=== PATIENT | male | born 1940 | race Caucasian/White ===

== ENCOUNTER 2019-12-04 10:48 | Emergency (ER) | payer MEDICARE, SELFPAY ==
--- NOTE | ~2019-12-04 | CT_ITS ---
EXAMINATION: CT thoracic lumbar w con DATE: 12/04/2019 12:21 INDICATION: Severe back pain. No feeling in the legs. TECHNIQUE: Computed tomography (CT) of the thoracic and lumbar spine was performed with 100 mL Omnipa que 350 intravenous contrast. Automated exposure control and iterative reconstruction technique were employed. The dose-length product was 2248.92 mGy-cm. COMPARISON: CT abdomen and pelvis 05/22/2018, chest 2 views 01/08/2019 FINDINGS: THORACIC SPINE CT: There is mild emphysema. There is mild atelectasis bilaterally. There is a 14 mm n odule in right lung upper lobe. There is a 5 mm nodule in right lung upper lobe. No pleural effusion. Cardiomegaly is noted. There are coronary artery calcifications. No pericardial effusion. There are calcifications of the aortic valve. There is 5 degrees dextrocurvature of thoracic spine. There is an acute versus subacute burst fracture of T5 with 3/5 loss of height and retropulsion of bone 3 mm int o central spinal canal. There is hyperdense soft tissue around T5 vertebral body with severe stenosis of the neural foramina and severe central canal stenosis with cord compression. There is a chronic c ompression fracture of T6 with 1/5 loss of height. There is moderately decreased disc height at T5-T6 and mildly decreased disc height at multiple other levels. There is multilevel mild facet joint oste oarthritis. There is severe facet joint osteoarthritis on the right at T5-T6. There is mild right elroy ral foraminal stenosis at T6-T7 and mild left neural foraminal stenosis at T6-T7 and T7-T8. There is moderate left neural foraminal stenosis at T10-T11 and T11-T12. LUMBAR SPINE CT: There are changes of right nephrectomy. There is 4 mm retrolisthesis of L2 on L3 and L3 on L4. There is a chronic compression fracture of L1 with 2/5 loss of height centrally. There is mildly decreased disc height at L2-L3. The disc heights are normal. The following disc levels are sp ecifically discussed: L1-L2: The disc is bulging. There is severe right and mild left facet joint osteoarthritis. There is no neural foraminal stenosis. There is no central canal stenosis. L2-L3: The disc is bulging. There is moderate right and mild left facet joint osteoarthritis. There i s moderate bilateral neural foraminal stenosis. There is moderate to severe central canal stenosis. L3-L4: The disc is bulging. There is severe right and moderate left facet joint osteoarthritis. There is moderate bilateral neural foraminal stenosis. There is moderate to severe central canal stenosis. L4-L5: The disc is bulging. There is severe bilateral facet joint osteoarthritis. There is moderate b ilateral neural foraminal stenosis. There is moderate to severe central canal stenosis. L5-S1: The disc is bulging. There is severe bilateral facet joint osteoarthritis. There is mild bilat eral neural foraminal stenosis. There is mild central canal stenosis. IMPRESSION: 1. Pathologic acute versus subacute T5 burst fracture with severe central canal stenosis and cord com pression. 2. Right lung nodules, consistent with metastatic disease. 3. Severe lumbar spondylosis. Reviewed, dictated and finalized at location A. [facility] IMPRESSION: 1. Pathologic acute versus subacute T5 burst fracture with severe central canal stenosis and cord compression. 2. Right lung nodules, consistent with metastatic disease. 3. Severe lumbar spondylosis.
--- NOTE | 2019-12-04 10:54 | ED.GENADULT ---
HPI - General Adult General Chief complaint: Weakness Stated complaint: MULTIPLE C/O Time Seen by Provider: 12/04/19 10:54 Source: patient and EMS Mode of arrival: EMS Limitations: no limitations History of Present Illness HPI narrative: Pt is a 79 y/o male who presents to the ED, via EMS, from OR, with c/o numbness from his waste down that started 4 days ago. Pt has a H/o kidney CA that metastasized to his bones. Pt is supposed to have a liver Bx for possible metastasis to his liver as well. Pt had a nephrectomy, but he has not undergone chemotherapy or radiation. Pt has not been able to urinate on his own for 4 days. He notes that he was catheterized a couple of days ago. His last BM was 2 days ago. Per EMS, pt has some rib Fx's after he sneezed. Per OR records, pt is a full code. Pt notes that he normally walks with a walker but he has not been able to for the last 4 days. MD complaint: Numbness Onset (ago): day(s) (4) Location: lower extremity (from waste down) Relieving factors: none Exacerbating factors: none Associated symptoms: other (inability to urinate) Related Data Home Medications Medication Instructions Recorded Confirmed albuterol sulfate [Ventolin HFA] 1 inh INHALATION QID 11/29/19 11/29/19 apixaban [Eliquis] 5 mg PO BID 11/29/19 11/29/19 carbidopa-levodopa 2 tablet PO TID 11/29/19 11/29/19 diltiazem HCl [Cartia XT] 180 mg PO DAILY 11/29/19 11/29/19 famotidine 20 mg PO 11/29/19 11/29/19 finasteride 5 mg PO DAILY 11/29/19 11/29/19 fluticasone furoate 1 mcg INHALATION 11/29/19 hydroxyzine HCl 10 mg 11/29/19 levothyroxine 100 mcg PO DAILY 11/29/19 11/29/19 metoprolol succinate 25 mg PO DAILY 11/29/19 11/29/19 montelukast 10 mg PO HS 11/29/19 11/29/19 simvastatin 10 mg PO HS 11/29/19 11/29/19 sulfasalazine 1 g PO TID 11/29/19 11/29/19 tamsulosin 0.8 mg PO HS 11/29/19 11/29/19 Allergies Allergy/AdvReac Type Severity Reaction Status Date / Time bacitracin Allergy Severe RASH Verified 01/08/19 13:22 benzethonium chloride Allergy Severe RASH Verified 01/08/19 13:22 benzocaine Allergy Severe RASH Verified 01/08/19 13:22 ceftriaxone Allergy Severe RASH Verified 01/08/19 13:22 neomycin Allergy Severe RASH Verified 01/08/19 13:22 polymyxin B Allergy Severe RASH Verified 01/08/19 13:22 sulfamethoxazole Allergy Severe RASH Verified 01/08/19 13:22 trimethoprim Allergy Severe RASH Verified 01/08/19 13:22 Review of Systems Review of Systems: All systems reviewed & are unremarkable except as noted in HPI and below Genitourinary: Genitourinary: Reports urinary incontinence Neurologic: Reports numbness (from waste down) [facility] Past Medical History Medical History (Updated 12/04/19 @ 17:36 by Korey Galvez MD) Anemia BPH (benign prostatic hyperplasia) COPD (chronic obstructive pulmonary disease) History of kidney cancer HTN (hypertension) Hypothyroidism MDS (myelodysplastic syndrome) Metastasis to bone Parkinson disease Spinal stenosis at L4-L5 level Thrombocytopenia Ulcerative colitis Surgical History Surgical History (Updated 12/04/19 @ 12:07 by Dee Wesley) H/O cataract removal with insertion of prosthetic lens H/O hemorrhoidectomy H/O knee surgery History of nephrectomy Family History Family History (Updated 11/29/19 @ 11:18 by Natalya Bob MD) Father Lung cancer Mother Breast cancer Sibling Breast cancer Social History Social History Smoking packs per day: 2 Smoking cigarettes per day: 40.0 Years smoked: 30 Smoking pack-years: 60.00 Smoking status: Former smoker Tobacco type: cigarettes Alcohol intake: never Substance use: never Gender identity (if verbalized by the patient): Male Spiritual care concerns: No Exam Narrative: Exam Narrative: General appearance: Well-developed, well-nourished, morbidly obese Skin: Normal color Head: Normocephalic, nontraumatic Eyes: Clear conjunctiva ENT: Orophary
--- NOTE | 2019-12-04 10:55 | ECG_ITS ---
Measurements Intervals [place] Rate: 88 P: MT: 0 QRS: 22 QRSD: 97 T: 11 QT: 355 QTc: 431 Interpretive Statements ATRIAL FLUTTER/TACHYCARDIA INCOMPLETE RIGHT BUNDLE BRANCH BLOCK BASELINE ARTIFACT- I, II, III, AVR, AVL, AVF, V1-V6 ABNORMAL ECG Electronically Signed On 12-04-2019 11:37:27 [employer] by Shane Alvarez D.O.
[2019-12-04 11:15] VITALS: BP 143/85; PULSE 99; RESP 21
[2019-12-04 11:16] VITALS: BP 145/85; PULSE 88; RESP 18; TEMP 36.8; O2SAT 91
[2019-12-04 11:22] VITALS: PULSE 88
--- NOTE | 2019-12-04 11:24 | PC.NURSE ---
PT REPORT GIVEN BEDSIDE TO GORDON PRADO WHO HAS ASSUMED PT CARE. PT PLACED ON AIRMATTRESS AND TAKEN TO CT AT THIS TIME.
--- NOTE | 2019-12-04 11:31 | PC.NURSE ---
Family client experience consultant light asking for pain medication for pt after being rolled and placed on air mattress. Spoke with UMESH Galvez who gave a verbal order for 4mg Morhpine and 4mg Zofran.
[2019-12-04] MEDS: ONDANSETRON INJ 4 MG/2 ML VIAL IV PUSH (11:37)
[2019-12-04] MEDS: MORPHINE SULFATE 4 MG/ML INJ IV PUSH (11:37)
[2019-12-04 11:43] LABS: Basophils Percent Auto 0.2 % (0.2-1.2); Eosinophils Percent Auto 0.2 % (0-4.4); Hematocrit 27.9 % (42.0-52.0); Hemoglobin 8.6 g/dL (14.0-18.0); Immature Granulocyte Absolute 0.11 K/mm3 (0.00-0.031); Immature Granulocyte Percent A 0.8 % (0-0.5); Lymphocytes Absolute Auto 0.52 K/mm3 (0.9-3.2); Lymphocytes Percent Auto 3.9 % (18.3-44.2); Mean Corpuscular HGB Conc 30.8 g/dl (32-36); Mean Corpuscular Hemoglobin 31.6 pg (26-34); Mean Corpuscular Volume 102.6 fl (80-100); Mean Platelet Volume 10.5 fl (7.4-10.4); Monocytes Absolute Auto 0.8 K/mm3 (0.1-0.6); Monocytes Percent Auto 6.4 % (2.6-8.5); Neutrophils Absolute Auto 11.7 K/mm3 (1.3-6.7); Neutrophils Percent Auto 88.5 % (45.5-73.1); Platelet Count Result 120 k/mm3 (150-375); Red Blood Count 2.72 M/mm3 (4.6-6.20); Red Cell Distribution Width 15.4 % (11.5-14.5); White Blood Count 13.2 K/mm3 (4.5-10.0)
[2019-12-04 12:00] LABS: Alanine Aminotransferase 10 U/L (4-50); Albumin Level 3.3 g/dL (3.5-5.1); Alkaline Phosphatase 153 U/L (38-126); Aspartate Amino Transferase 25 U/L (17-59); Bilirubin,Total 0.5 mg/dL (0.2-1.3); Blood Urea Nitrogen 37 mg/dL (9-20); Calcium 8.9 mg/dL (8.4-10.2); Carbon Dioxide 22 mmol/L (22-30); Chloride 100 mmol/L (98-107); Estimated CRCL calculation 67 ml/min; Estimated Glomerular Filt Rate 58; Glucose 114 mg/dL (75-110); Potassium 4.3 mmol/L (3.4-5.0); Sodium 132 mmol/L (137-145)
[2019-12-04 13:28] VITALS: BP 101/58; PULSE 81; RESP 9; O2SAT 99
[2019-12-04 15:18] LABS: Add Urine Microscopic? YES; Appearance Urine Clear (Clear); Bacteria Urine Trace /hpf; Bilirubin Urine Negative (Negative); Blood Urine 2+ (Negative); Color Urine Yellow (Yellow); Glucose Urine UA Negative (Negative); Ketones Urine Negative (Negative); Leukocyte Esterase Ur Negative LEU/UL (Negative); Mucus Urine Rare /lpf; Nitrate Urine Negative (Negative); Protein Urine Negative (Negative); RBC Urine 21-50 /hpf (0-2); Specific Grav Ur 1.016 (1.001-1.035); Urobilinogen Urine Negative mg/dL (<2.0); WBC Urine 0-3 /hpf
[2019-12-04] MEDS: MORPHINE SULFATE 4 MG/ML INJ (15:36)
[2019-12-04 16:31] VITALS: BP 133/73; PULSE 74; RESP 14; O2SAT 98
[2019-12-04 17:31] VITALS: BP 133/73; PULSE 75; RESP 21; O2SAT 100
== END 2019-12-04 18:52 | disposition short-term general hospital (02) ==
PROVIDERS: Emergency Provider Emergency Medicine
DX: G95.20 Unspecified cord compression (principal); G82.20 Paraplegia, unspecified; D64.9 Anemia, unspecified; N40.0 Benign prostatic hyperplasia without lower urinary tract symptoms; J44.9 Chronic obstructive pulmonary disease, unspecified; I10 Essential (primary) hypertension; E03.9 Hypothyroidism, unspecified; G20 Parkinson's disease; D46.9 Myelodysplastic syndrome, unspecified; C64.9 Malignant neoplasm of unspecified kidney, except renal pelvis; C79.51 Secondary malignant neoplasm of bone; Z90.5 Acquired absence of kidney; Z98.49 Cataract extraction status, unspecified eye; Z96.1 Presence of intraocular lens; Z79.01 Long term (current) use of anticoagulants
CPT/HCPCS: 36415; 51701; 72129; 72132; 80053; 81001; 85025; 93005; 96374; 96375; 96376; 99285; J1100; J2270; J2405; Q9967